=== PATIENT | female | born 1965 ===

== ENCOUNTER → 2019-08-13 | Outpatient (CLI) | payer SELFPAY ==
--- NOTE | 2019-08-13 16:19 | Diagnostic Imaging Report ---
PROCEDURE: MRI lumbar spine. TECHNIQUE: Multiplanar, multisequence MRI of the lumbar spine was performed without contrast. INDICATION: Low back pain. FINDINGS: The alignment of the lumbar spine is normal. The vertebral body heights are well-maintained. There is no spondylolysis or spondylolisthesis. No fractures are identified. The conus medullaris is seen at L1 and is normal in appearance. At T12-L1, there is no spinal or neuroforaminal encroachment. At L1-L2, there is minimal annular bulging and mild facet disease. There is very slight effacement of the ventral thecal sac; however, there is no significant neuroforaminal encroachment. At L2-L3, there is mild facet disease. There is no spinal or neuroforaminal encroachment. At L3-L4, there is mild annular bulging and facet disease. There is slight effacement of the ventral thecal sac; however, there is no significant neuroforaminal encroachment. At L4-L5, there is loss of disc height and signal intensity. There is an annular fissure/annular tear in the posterior central anulus. There is some facet disease and thickening of the ligamentum flavum. There is mild central spinal stenosis and mild bilateral neuroforaminal encroachment. At L5-S1, there is some minimal annular bulging and mild facet disease. There is slight effacement of the ventral thecal sac with mild to moderate bilateral neuroforaminal encroachment. The aorta is nonaneurysmal. The kidneys are normal in appearance apart from a left renal cyst. IMPRESSION: Mild lower lumbar spondylosis and degenerative disc disease as described. Dictated by: Dictated on workstation # [id number]
== END ==
LOC: RAD 15:16
PROVIDERS: ATTEND Physician Assistant
DX: M54.42 Lumbago with sciatica, left side (principal); M54.41 Lumbago with sciatica, right side; M47.816 Spondylosis without myelopathy or radiculopathy, lumbar region; M51.36 Other intervertebral disc degeneration, lumbar region; M48.061 Spinal stenosis, lumbar region without neurogenic claudication
CPT/HCPCS: 72148